=== PATIENT | male | born 1985 | race Caucasian/White ===

== ENCOUNTER → 2019-05-03 | Outpatient (CLI) | payer OTHER ==
[~2019-05-03] MED LIST: PROHANCE 279.3MG/ML 15ML VIAL (A9576) As Ordered ONE; PROHANCE 279.3MG/ML 5ML VIAL (A9576) As Ordered ONE
--- NOTE | 2019-05-03 10:23 | REP ---
MR BRAIN WITHOUT AND WITH CONTRAST: HISTORY: Left sensory neural hearing loss. CONTRAST: ProHance 20 mL. An area of increased signal intensity on T2-weighted images is present in the periventricular white matter of the posterior right frontal and anterior right parietal lobes. There is dilatation of the anterior body of the right lateral ventricle. This represents gliosis and encephalomalacia. There is no intraparenchymal hemorrhage, infarct, mass or midline shift. There is no abnormal enhancement. There is no hydrocephalus or extracerebral collection. There is no cerebellopontine angle mass. The inner ear structures are normal in appearance. The mastoid air cells are clear. Mucosal thickening is present in the maxillary sinuses. IMPRESSION: Right frontal parietal lobe encephalomalacia. Electronically Signed by Jefferson Easton MD 05/03/2019 10:27 A
== END ==
LOC: M RAD 08:52
PROVIDERS: ATTEND Otolaryngology
DX: G04.90 Encephalitis and encephalomyelitis, unspecified (principal)
CPT/HCPCS: 70553; A9576